=== PATIENT | female | born 1955 | race American Indian/Alaskan Native ===

== ENCOUNTER 2021-07-10 12:42 | Emergency (ER) | payer MEDICARE ==
[2021-07-10 13:15] VITALS: BP 176/90
[2021-07-10] MEDS ORDERED: IBUPROFEN 400 MG TAB PO ONE (13:29)
[2021-07-10] MEDS ORDERED: PANTOPRAZOLE 40 MG TAB PO ONE (13:29)
[2021-07-10] MEDS ORDERED: ACETAMINOPHEN 500 MG TAB PO ONE (13:29)
[2021-07-10] MEDS ORDERED: amLODIPine 5 MG TAB PO ONE (13:29)
--- NOTE | 2021-07-10 13:30 | Emergency Department Report ---
ED General Adult HPI - General Chief complaint: Chest Pain Stated complaint: Chest wall pain for 1 month Time Seen by Provider: 07/10/21 13:19 Source: patient, RN notes reviewed, old records reviewed Mode of arrival: Ambulatory Limitations: No Limitations - History of Present Illness Initial comments: During the history and physical examination I am chaperoned by Fifi Araujo Cardiology: [facility] cardiology; Dr. Xavier Edwards The patient is a 66-year-old female who presents to the ER with a complaint of 1 month chest wall pain and back pain. She denies travel, surgery, immobilization, DVT/PE risk factors. Chest wall pain increases with palpation and decreases with rest. Patient denies vomiting, diaphoresis exertional shortness of breath, she does endorse a history of elevated blood pressure, endorses compliance with her medications, as she also endorses taking aspirin within the past 7 days She came in today at the request of her partner/significant other. -: Gradual, month(s) Location: chest, back Severity scale (0 -10): 8 Quality: aching Consistency: constant Improves with: rest Worsens with: movement (Palpation and movement) - Related Data Previous Rx's Medication Instructions Recorded Last Taken Type Cyclobenzaprine [Flexeril] 10 mg PO TID PRN #14 tablet 01/09/16 Unknown Rx HYDROcodone/APAP 5-325 [Lagrange 1 - 2 each PO Q6HR PRN #14 tablet 01/09/16 Unknown Rx 5/325] Ibuprofen [Motrin 800 MG tab] 800 mg PO Q8HR PRN #20 tablet 01/09/16 Unknown Rx Allergies Allergy/AdvReac Type Severity Reaction Status Date / Time No Known Allergies Allergy Verified 07/10/21 13:14 ED Review of Systems ROS: Stated complaint: CHEST PAIN Other details as noted in HPI Constitutional: denies: fever Eyes: denies: eye discharge ENT: denies: epistaxis Respiratory: denies: cough, wheezing Cardiovascular: chest pain (Chest wall pain) Gastrointestinal: denies: abdominal pain, nausea, vomiting, diarrhea Musculoskeletal: back pain (Back pain) Neurological: denies: weakness ED Past Medical Hx - Past Medical History Hx Heart Attack/AMI: Yes - Surgical History Additional Surgical History: Cardiac stent - Social History Smoking Status: Never Smoker Substance Use Type: None - Medications Home Medications: Home Medications Medication Instructions Recorded Confirmed Last Taken Type Cyclobenzaprine [Flexeril] 10 mg PO TID PRN #14 tablet 01/09/16 Unknown Rx HYDROcodone/APAP 5-325 [Lagrange 1 - 2 each PO Q6HR PRN #14 tablet 01/09/16 Unknown Rx 5/325] Ibuprofen [Motrin 800 MG tab] 800 mg PO Q8HR PRN #20 tablet 01/09/16 Unknown Rx ED Physical Exam - General Limitations: No Limitations General appearance: alert, in no apparent distress - Head Head exam: Present: atraumatic, normocephalic - Eye Eye exam: Present: normal appearance, EOMI. Absent: nystagmus - ENT ENT exam: Present: normal exam, normal orophraynx, mucous membranes moist, normal external ear exam - Neck Neck exam: Present: normal inspection, full ROM. Absent: tenderness, menin gismus - Respiratory Respiratory exam: Present: normal lung sounds bilaterally, chest wall tenderness. Absent: respiratory distress, wheezes, rales, rhonchi, stridor - Cardiovascular Cardiovascular Exam: Present: regular rate, normal rhythm, normal heart sounds. Absent: bradycardia, tachycardia, irregular rhythm, systolic murmur, diastolic murmur, rubs, gallop - GI/Abdominal GI/Abdominal exam: Present: soft. Absent: distended, tenderness, guarding, rebound, rigid, pulsatile mass - Extremities Exam Extremities exam: Present: normal inspection, full ROM. Absent: pedal edema, calf tenderness - Back Exam Back exam: Present: normal inspection, paraspinal tenderness. Absent: tenderness, CVA tenderness (R), CVA tenderness (L) - Neurological Exam Neurological exam: Present: alert, oriented X3, normal gait, other (No facial droop. Tongue midline. Extraocular movements intact bilaterally. Facial sensation intact to light touch in V1, V2, V3 distribution bilaterally. 5 and a 5 strength in 4 extremities. Sensation intact to light touch in 4 extremities .). Absent: motor sensory deficit - Psychiatric Psychiatric exam: Present: normal affect, normal mood - Skin Skin exam: Present: warm, dry, intact, normal color. Absent: rash ED Course Vital Signs 07/10/21 13:13 Temperature 98.3 F Pulse Rate 77 Respiratory 16 Rate Blood Pressure 176/90 [Right] O2 Sat by Pulse 100 Oximetry - Reevaluation(s) Reevaluation #1: 07/10/21 14:19 Differential diagnosis, including but not limited to: GERD, gastritis, hiatal hernia, pneumonia, costochondritis Assessment and plan: 66-year-old female, who is low risk by Wells criteria for pulmonary embolism, who is not currently tachycardic, tachypneic or hypoxic, presenting with 1 month of reproducible chest wall pain. Her age and cardiovascular risk factor profile are reviewed and appreciated. We will obtain troponin x1, EKG, and x-ray of the chest. We will discuss with her [employer]400 programmer once her initial diagnostics have resulted. Discussed this plan of care with the patient. She is agreeable to the plan of care. 07/10/21 15:51 Laboratory studies unremarkable. Chest x-ray unremarkable. Given that patient is having 1 month of symptoms, given 1 set of troponins, acute myocardial infarction is ruled out as per the [employer] clinical policy. Contacted cardiology covering for the patient's primary group, Dr. Rick Discussed the patient's history, physical, laboratory studies imaging studies EKG findings and overall clinical impression. We both agree that given 1 month of symptoms, patient being in no acute distress, and overall presentation, it would be reasonable to have her follow-up later on this week in the office for outpatient appointment. Cardiology nurse practitioner is currently calling the office to arrange outpatient appointment. They will call me back with the details. 07/10/21 15:58 Patient is to follow-up with her as400 programmer on Saturday, this week, 1:30 PM, and the [facility] ED Medical Decision Making - Lab Data Result diagrams: 07/10/21 14:30 07/10/21 14:30 Vital Signs 07/10/21 13:13 Temperature 98.3 F Pulse Rate 77 Respiratory 16 Rate Blood Pressure 176/90 [Right] O2 Sat by Pulse 100 Oximetry - EKG Data -: EKG Interpreted by Me EKG shows normal: sinus rhythm Rate: normal - EKG Data 07/10/21 14:19 The EKG is interpreted at 13: 37 Sinus rhythm, rate 61 bpm. Left axis deviation, left anterior fascicular block. OH interval within normal limits, normal P wave axis. This is an abnormal EKG. This is not a STEMI. It appears to be unchanged from prior EKG from 2011, with the exception of a new left axis deviation. - Radiology Data Radiology results: pending, report reviewed, image reviewed CHEST 2 VIEWS INDICATION / CLINICAL INFORMATION: Chest Pain. COMPARISON: None available. FINDINGS: SUPPORT DEVICES: None. HEART / MEDIASTINUM: No significant abnormality. LUNGS / PLEURA: No significant pulmonary or pleural abnormality. No pneumothorax. ADDITIONAL FINDINGS: No significant additional findings. IMPRESSION: 1. No acute findings. Signer Name: Jorge Corado MD Signed: 07/10/2021 1:12 PM Workstation Name: [id number] Critical care attestation.: If time is entered above; I have spent that time in minutes in the direct care of this critically ill patient, excluding procedure time. ED Disposition Clinical Impression: Chest wall pain, Elevated blood pressure reading Disposition: HOME / SELF CARE / HOMELESS Is pt being admited?: No Does the pt Need Aspirin: No Condition: Good Instructions: Chest Wall Pain, Hypertension, Adult Additional Instructions: Please continue current outpatient medications. Please follow-up with your as400 programmer later on this week as scheduled. Avoid consumption of heavy and spicy foods, and minimize Motrin/ibuprofen consumption. Please return to the emergency room right away with new pain, worsened pain, migration of pain, projectile vomiting, change in mental status, confusion, inability tolerate liquid feeds, new, worsened or different symptoms not present on the initial emergency room evaluation The patient is scheduled to follow-up with her as400 programmer this Saturday, 1:30 PM, at the [facility], on July 14. [id number] [facility] [address] Office: [phone] Hours: Saturday - Saturday 8:30 a.m. to 5:00 p.m. VIEW DIRECTIONS Referrals: [facility] [Provider Group] - 3-5 Days ROGELIO EDWARDS MD [Staff Physician] - 07/14/21 1:30 pm
--- NOTE | 2021-07-10 14:17 | XRay Report ---
CHEST 2 VIEWS INDICATION / CLINICAL INFORMATION: Chest Pain. COMPARISON: None available. FINDINGS: SUPPORT DEVICES: None. HEART / MEDIASTINUM: No significant abnormality. LUNGS / PLEURA: No significant pulmonary or pleural abnormality. No pneumothorax. ADDITIONAL FINDINGS: No significant additional findings. IMPRESSION: 1. No acute findings. Signer Name: Jorge Corado MD Signed: 07/10/2021 2:12 PM Workstation Name: [id number]
[2021-07-10 14:58] LABS: Basophils % (Auto) 0.6 % (0.0-1.8); Eosinophils % (Auto) 0.5 % (0.0-4.3); Hematocrit 40.6 % (30.3-42.9); Hemoglobin 13.4 gm/dl (10.1-14.3); Lymphocytes # (Auto) 1.4 K/mm3 (1.2-5.4); Lymphocytes % (Auto) 29.3 % (13.4-35.0); Mean Corpuscular HGB Conc 33 % (30-34); Mean Corpuscular Volume 98 fl (79-97); Monocytes # (Auto) 0.2 K/mm3 (0.0-0.8); Monocytes % (Auto) 4.8 % (0.0-7.3); Platelet Count 200 K/mm3 (140-440); Red Blood Count 4.13 M/mm3 (3.65-5.03); Red Cell Distribution Width 12.3 % (13.2-15.2)
[2021-07-10 15:05] LABS: INR 1.13 (0.87-1.13)
[2021-07-10 15:27] LABS: Alanine Aminotransferase 14 units/L (7-56); Albumin 4.2 g/dL (3.9-5); Blood Urea Nitrogen 11 mg/dL (7-17); Calcium 9.5 mg/dL (8.4-10.2); Hemolysis Index 10
[2021-07-10 15:30] LABS: BUN/Creatinine Ratio 18
--- NOTE | 2021-07-11 10:16 | Electrocardiograph Report ---
[facility] Test Date: 2021-07-10 Test Time: 13:37:56 Pat Name: LORRIE CYR Department: Room: Gender: F [employer] Technology Instructor: JD : 1955 Requested By: NOEMÍ WONG Order Number: [id number] Reading MD: Tommy Crow Measurements Intervals [place] Rate: 61 P: 50 VT: 171 QRS: -1 QRSD: 77 T: 29 QT: 399 QTc: 403 Interpretive Statements Sinus rhythm No previous ECG available for comparison Electronically Signed On 07-11-2021 10:15:46 EDT by Tommy Crow
== END 2021-07-10 16:31 | disposition home or self-care (01) ==
LOC: ED 12:42
DX: R07.89 Other chest pain (principal); I10 Essential (primary) hypertension; I25.2 Old myocardial infarction
CPT/HCPCS: 36415; 71046; 80053; 84484; 85025; 85610; 93005; 99284